=== PATIENT | female | born 1995 | race Caucasian/White ===

== ENCOUNTER 2017-02-05 17:00 | Inpatient (IN) | payer MEDICAID, OTHER ==
[~2017-02-05] VITALS: Ht 167.6 cm; Wt 64.9 kg
--- NOTE | 2017-02-05 17:41 | RADRPT ---
PROCEDURE: US OB. CLINICAL INDICATION: Size and dates ,leaking fluid TECHNIQUE: Multiple sonographic images of the pelvis and gravid uterus were obtained. The images were reviewed on a PACS workstation. COMPARISON: No prior studies are available for comparison. FINDINGS: There is a single viable intrauterine gestation. Cardiac activity is present with 122 beats per min elem. There is a vertex presentation. The placenta is anterior. There is no evidence for an abruption or placenta previa. Measurements were made in order to determine age. The results are as follows: BPD =9.3 cm HC =33.1 cm AC =33.8 cm FL =7.4 cm Estimated gestational age of approximately 37 weeks and 5 days based on ultrasound measurements. Clinical age: 37 weeks and 6 days. The estimated date of delivery is 02/21/17, based on ultrasound measurements. The EFW = 3284 g, 57%, based on LMP age. RPTAT: AA IMPRESSION: Single viable intrauterine gestation of approximately 37 weeks and 5 days based on ultrasound measu rements. .Anjel Gillespie MD, MD Date Time Electronically viewed and signed by .Anjel Gillespie MD, on 02/05/2017 17:41 .S/
--- NOTE | 2017-02-05 17:48 | RADRPT ---
PROCEDURE: OB ultrasound for biophysical profile CLINICAL INDICATION: Leaking fluid. TECHNIQUE: Multiple sonographic images of the pelvis were obtained. Transabdominal view of the gr avid uterus are available for review. The images were reviewed on a PACS workstation. COMPARISON: OB ultrasound from the same date. FINDINGS: breathing movement = 2/2 tone = 2/2 motion = 2/2 Quantitative amniotic fluid volume = 2/2 MEKHI = 12.2 cm Single live intrauterine with cardiac activity at 132 beats per minute. There is a anterior placenta without previa. IMPRESSION: 1. Single living intrauterine gestation in cephalic position. 2. Biophysical profile = 8/8. 3. MEKHI = 12.2 cm. RPTAT: [facility] Physician Joanne Date Time Electronically viewed and signed by Physician Joanne on 02/05/2017 17:48 /
--- NOTE | 2017-02-05 19:12 | TRIAGE ---
OB Triage Datetime Report Generated by CPN: 02/05/2017 19:11 Datetime: 02/05/2017 19:00 Stage of : OB Triage Maternal Assessment Level of Consciousness: Fully Conscious DTR's/Clonus: DTRs 1+ Headache: Denies Breath Sounds, Left: Clear and Equal Breath Sounds, Right: Clear and Equal Nausea/Vomiting: Denies RUQ Epigastric Pain: Denies Labor Evaluation Frequency: OCC Monitor Mode: External Duration (sec)2399: 60 Quality: Mild Pattern: Normal: <= 5 Contractions in 10 Minutes Resting Tone [place]: Relaxed Heart Rate FHR Baseline Rate: 120 Monitor Mode: External US Variability: Moderate 6-25 bpm Accelerations: 15X15 Decelerations: None Category: Category I Pain Assessment Pain Scale: 0 Pain Presence: None/Denies Pain Type: N/A Pain Goal: 3 Membrane Status: Intact Datetime: 02/05/2017 18:07 Comments: U/S REPOSITIONED Datetime: 02/05/2017 18:04 Maternal Assessment Level of Consciousness: Fully Conscious DTR's/Clonus: DTRs 1+ Headache: Denies Blurred Vision: No Respiratory Effort: Unlabored Breath Sounds, Left: Clear and Equal Breath Sounds, Right: Clear and Equal Nausea/Vomiting: Denies RUQ Epigastric Pain: Denies Facial Edema: None Labor Evaluation Frequency: X1 Monitor Mode: External Duration (sec)2399: 60 Quality: Mild Pattern: Normal: <= 5 Contractions in 10 Minutes Resting Tone [place]: Relaxed Heart Rate FHR Baseline Rate: 135 Monitor Mode: External US Variability: Moderate 6-25 bpm Accelerations: 15X15 Decelerations: None Category: Category I Pain Assessment Pain Scale: 0 Pain Presence: None/Denies Pain Type: N/A Pain Goal: 3 Membrane Status: Intact Datetime: 02/05/2017 17:22 Assessment Type: Triage EGA: 37.6 Maternal Assessment Level of Consciousness: Fully Conscious DTR's/Clonus: DTRs 2+; No Clonus Headache: Denies Blurred Vision: No Respiratory Effort: Unlabored; Regular Rhythm; Equal Expansion Breath Sounds, Left: Clear and Equal Breath Sounds, Right: Clear and Equal Nausea/Vomiting: Denies RUQ Epigastric Pain: Denies Lower Extremities Edema: None Degree: None Upper Extremities Edema: None Degree: None Facial Edema: None Fall Risk Assessment History of Falling: (0) No Secondary Diagnosis: (0) No Ambulatory Aid: (0) Bedrest/Nurse Assist IV Therapy: (0) No Gait: (0) Normal/Bedrest/Immobile Mental Status: (0) Oriented to Own Ability Fall Score: 0 Fall Risk Score Definition: No Risk: No action required Datetime: 02/05/2017 17:18 Comments: OFF U/S TECH IN ROOM STARTING U/S Datetime: 02/05/2017 17:14 Comments: AUDIBLE DECEL NOTED AT 70'S BPM, PT REPOSITONED AGAIN AND HERT BEAT SLOWLY GOING UP U/S TECH AT BEDSDIE Datetime: 02/05/2017 17:10 Vaginal Exam Dilatation (cms): 1.0 Effacement (%): 0 Station: -2 Exam By: HUSAM HAYES Vaginal Bleeding: None Cervix, Consistency: Soft Cervix, Position: Posterior Presentation 'A': Cephalic Datetime: 02/05/2017 17:00 Time of Arrival: 02/05/2017 17:00 Arrived By: Ambulatory Arrived From: Office Chief Complaint: PT CAME IN FROM [facility] OFFICE TO R/O SROM SINCE 2 WEEKS AGO Movement: Present Contractions: Denies/Absent Rupture of Membranes: Denies Vaginal Discharge: Denies Recent Sexual Intercouse: Denies Abdominal Trauma: Not Applicable Additional Patient Complaints: NONE Time Provider Notified: 02/05/2017 18:45 Provider Notified: MANUELA Initial Plan: NST AND BPP ROM +
[2017-02-05] MEDS ORDERED: LACTATED RINGER'S 1,000 ML IV PRN (19:51)
[2017-02-05] MEDS ORDERED: IBUPROFEN 600 MG TAB PO PRN (20:00)
[2017-02-05] MEDS ORDERED: LIDOCAINE 1% (MPF) 30 ML INJ INJ PRN (20:00)
[2017-02-05] MEDS ORDERED: OXYTOCIN 30 UNITS/LR 500 ML IV SCH ×2 (20:00)
[2017-02-05] MEDS ORDERED: BUTORPHANOL 2 MG INJ IV PRN (20:00)
[2017-02-05] MEDS ORDERED: METHYLERGONOVINE 0.2 MG INJ IM PRN (20:00)
[2017-02-05] MEDS ORDERED: OXYTOCIN 30 UNITS/LR 500 ML IV PRN (20:00)
[2017-02-05] MEDS ORDERED: CARBOPROST 250 MCG INJ IM PRN (20:00)
[2017-02-05] MEDS ORDERED: MISOPROSTOL 200 MCG TAB PR PRN (20:00)
[2017-02-05 20:27] VITALS: BP 108/63; PULSE 75; RESP 18
[2017-02-05 20:30] LABS: ADD SCAN DIFF NO; BASOPHILS % 0.3 % (0.0-2.0); EOSINOPHILS % 0.2 % (0.0-7.0); HEMATOCRIT 28.5 % (37.0-47.0); HEMOGLOBIN 8.9 g/dl (12.0-16.0); LYMPHOCYTES # 1.6 10^3/ul (0.8-2.9); LYMPHOCYTES % 18.1 % (15.0-51.0); MEAN CORPUSCULAR HGB CONC 31.2 g/dl (32.0-37.0); MEAN CORPUSCULAR VOLUME 83.3 fl (82.0-101.0); MEAN PLATELET VOLUME 9.7 fl (7.4-10.4); MONOCYTE # 0.5 10^3/ul (0.3-0.9); MONOCYTES % 5.9 % (0.0-11.0); NEUTROPHIL # 6.7 10^3/ul (1.6-7.5); NEUTROPHILS % 75.2 % (39.0-77.0); PLATELET COUNT 247 10^3/UL (140-415); RED BLOOD COUNT 3.42 10^6/ul (4.20-5.40); RED CELL DISTRIBUTION WIDTH 13.6 % (11.5-14.5); WHITE BLOOD COUNT 8.9 10^3/ul (4.8-10.8)
[2017-02-05 20:40] VITALS: Ht 167.6 cm; Wt 64.9 kg
[2017-02-05 20:45] LABS: INR 1.06; PROTIME 13.8 Sec (12.2-14.2); PT RATIO 1.1
[2017-02-05 20:46] LABS: PARTIAL THROMBOPLASTIN TIME 26.9 Sec (25.0-35.0)
[2017-02-05] MEDS: LACTATED RINGER'S 1,000 ML IV SCH (21:00)
[2017-02-06] MEDS: LACTATED RINGER'S 1,000 ML IV SCH (04:03)
--- NOTE | 2017-02-06 10:18 | HP ---
Date/Time of Note Date/Time of Note DATE: 02/06/17 TIME: 10:17 OB - History Hx of Present Free Text/Dictation @37+wks GA with variables at the time of admission : 1 Para: 0 Past Family/Social History * Past Medical, Surgical, Family and Obstetric Histories reviewed from chart. OB Admission Exam Vital Signs Vital Signs Vital Signs Date Time Temp Pulse Resp B/P Pulse Ox O2 Delivery O2 Flow Rate FiO2 02/05/17 20:27 98.0 75 18 108/63 Room Air Physical Exam Abdomen: WNL Extremities: Normal Cervical Dilatation: 1cm Effacement: 50% Membranes: Intact Heart Rate: 140's Accelerations: Accelerations Present Decelerations: No Decelerations Varibility: Moderate Contractions on Admission: >10 Minutes Apart Last 72 hours Lab Results CBC & BMP 02/05/17 20:05 OB Assessment/Plan Reason for admission: observation Plan: Expectant Management KAREN ROY M.D. February 06, 2017 10:18
--- NOTE | 2017-02-06 10:19 | QN ---
Documentation Comment Pateient seen at the bedside +FM No VB No LOF Occasional CTXs No cervical change NST reassuring [place] Occasional CTXs --->discharged with precautions --->Return to hospital in 2 days for NST KAREN ABURTO M.D. February 06, 2017 10:19
== END 2017-02-06 10:30 | disposition home or self-care (01) | DRG 780 ==
LOC: L-D 17:00 → OBT 17:00 → L-D 18:45
PROVIDERS: ADMIT Obstetrics & Gynecology; ATTEND Obstetrics & Gynecology
DX: O47.1 False labor at or after 37 completed weeks of gestation (principal); Z3A.37 37 weeks gestation of pregnancy
CPT/HCPCS: 76815; 76818; 84112; 85025; 85610; 85730; 86592; 86703; 86900; 86901; 87340; G0463; J7120

== ENCOUNTER 2017-02-08 13:25 | Outpatient (CLI) | payer MEDICAID ==
--- NOTE | 2017-02-08 14:34 | RADRPT ---
PROCEDURE: US OB biophysical profile. CLINICAL INDICATION: decreased movements TECHNIQUE: Multiple sonographic images of the pelvis were obtained. The images were reviewed on a PACS workstation. COMPARISON: 02/05/17 FINDINGS: There is a single viable intrauterine gestation. Cardiac activity is present with 139 beats per min luis. There is a vertex presentation. The placenta is anterior. There is no evidence of placental abruption. There is a normal amount of amniotic fluid with an MEKHI = 14.1 cm. Biophysical profile: movement 2/2 tone 2/2. breathing 2/2 MEKHI 2/2 Total 05/01 RPTAT: AA . IMPRESSION: Normal biophysical profile. . .Anjel Gillespie MD, MD Date Time Electronically viewed and signed by .Anjel Gillespie MD, MD on 02/08/2017 14:34 .S/
--- NOTE | 2017-02-08 14:39 | RADRPT ---
PROCEDURE: US OB. CLINICAL INDICATION: Size and dates , decreased movements TECHNIQUE: Multiple sonographic images of the pelvis and gravid uterus were obtained. The images were reviewed on a PACS workstation. COMPARISON: 02/05/2017 FINDINGS: There is a single viable intrauterine gestation. Cardiac activity is present with 142 beats per min [place]. There is a vertex presentation. The placenta is anterior. There is no evidence for an abruption or placenta previa. There is a normal amount of amniotic fluid with an MEKHI = 14.1 cm. Measurements were made in order to determine age. The results are as follows: BPD =9.1 cm HC =32.5 cm AC =35.1 cm FL =7.2 cm Estimated gestational age of approximately 37 weeks and 3 days based on ultrasound measurements. Clinical age: 38 weeks and 2 days. The estimated date of delivery is 02/26/17, based on ultrasound measurements. The EFW = 3363 g, 56.5%, based on LMP age. RPTAT: AA IMPRESSION: Single viable intrauterine gestation of approximately 37 weeks and 3 days based on ultrasound measu rements. .Anjel Gillespie MD, MD Date Time Electronically viewed and signed by .Anjel Gillespie MD, on 02/08/2017 14:39 .S/
--- NOTE | 2017-02-08 15:33 | TRIAGE ---
OB Triage Datetime Report Generated by CPN: 02/08/2017 15:32 Datetime: 02/08/2017 14:55 Labor Evaluation Frequency: NONE Monitor Mode: External Pattern: Normal: <= 5 Contractions in 10 Minutes Resting Tone [place]: Relaxed Heart Rate FHR Baseline Rate: 135 Monitor Mode: External US FHR Baseline Changes: No Baseline Change Variability: Moderate 6-25 bpm Accelerations: 15X15 Decelerations: None Category: Category I Datetime: 02/08/2017 13:51 Stage of : OB Triage Assessment Type: Triage Maternal Assessment Level of Consciousness: Fully Conscious DTR's/Clonus: DTRs 2+; No Clonus Headache: Denies Blurred Vision: No Respiratory Effort: Unlabored; Regular Rhythm; Equal Expansion Breath Sounds, Left: Clear and Equal Breath Sounds, Right: Clear and Equal Nausea/Vomiting: Denies RUQ Epigastric Pain: Denies Lower Extremities Edema: None Upper Extremities Edema: None Facial Edema: None Temperature Route: Oral Fall Risk Assessment History of Falling: (0) No Secondary Diagnosis: (0) No Ambulatory Aid: (0) Bedrest/Nurse Assist IV Therapy: (0) No Gait: (0) Normal/Bedrest/Immobile Mental Status: (0) Oriented to Own Ability Fall Score: 0 Fall Risk Score Definition: No Risk: No action required Pain Assessment Pain Scale: 0 Pain Presence: None/Denies Pain Type: N/A Pain Goal: 4 Datetime: 02/08/2017 13:30 Time of Arrival: 02/08/2017 13:30 EGA: 38.2 Arrived By: Ambulatory Arrived From: Home Chief Complaint: PT HERE FOR NST, BPP AND EFW Movement: Present Contractions: Occasional Rupture of Membranes: Denies Vaginal Bleeding: None Vaginal Discharge: Denies Recent Sexual Intercouse: Denies Abdominal Trauma: Not Applicable Patient Complaints: None Time Provider Notified: 02/08/2017 15:25 Datetime: 02/06/2017 10:00 Vaginal Exam Dilatation (cms): 0.0 Exam By: DR GHAYOORI Datetime: 02/06/2017 09:50 Labor Evaluation Frequency: 2-3/HR Monitor Mode: External Quality: Mild Pattern: Normal: <= 5 Contractions in 10 Minutes Resting Tone [place]: Relaxed Heart Rate FHR Baseline Rate: 130 Monitor Mode: External US FHR Baseline Changes: No Baseline Change Variability: Moderate 6-25 bpm Accelerations: 15X15 Decelerations: None Category: Category I Pain Presence: None/Denies Datetime: 02/06/2017 08:26 Labor Evaluation Frequency: OCC Monitor Mode: External Quality: Mild Pattern: Normal: <= 5 Contractions in 10 Minutes Resting Tone [place]: Relaxed Heart Rate FHR Baseline Rate: 130 Monitor Mode: External US FHR Baseline Changes: No Baseline Change Variability: Moderate 6-25 bpm Accelerations: 15X15 Decelerations: None Category: Category I Pain Presence: None/Denies Datetime: 02/06/2017 07:24 Assessment Type: Ongoing Assessment Maternal Assessment Level of Consciousness: Fully Conscious DTR's/Clonus: DTRs 2+; No Clonus Headache: Denies Blurred Vision: No Respiratory Effort: Unlabored; Regular Rhythm; Equal Expansion Breath Sounds, Left: Clear and Equal Breath Sounds, Right: Clear and Equal Nausea/Vomiting: Denies RUQ Epigastric Pain: Denies Facial Edema: None Fall Risk Assessment History of Falling: (0) No Secondary Diagnosis: (0) No Ambulatory Aid: (0) Bedrest/Nurse Assist IV Therapy: (0) No Gait: (0) Normal/Bedrest/Immobile Mental Status: (0) Oriented to Own Ability Fall Score: 0 Fall Risk Score Definition: No Risk: No action required Datetime: 02/06/2017 07:23 Labor Evaluation Frequency: 0 Monitor Mode: External Contraction Comments: DENIES FEELING ANY UC'S Heart Rate FHR Baseline Rate: 115 Monitor Mode: External US FHR Baseline Changes: No Baseline Change Variability: Moderate 6-25 bpm Accelerations: 15X15 Decelerations: None Category: Category I Pain Presence: None/Denies Datetime: 02/06/2017 07:00 Labor Evaluation Frequency: x5; irregular Monitor Mode: External Duration (sec)2399: 60-90 Quality: Mild Pattern: Normal: <= 5 Contractions in 10 Minutes Resting Tone [place]: Relaxed Heart Rate FHR Baseline Rate: 115 Monitor Mode: External US FHR Baseline Changes: No Baseline Change Variability: Moderate 6-25 bpm Accelerations: 15X15 Decelerations: None Category: Category I Datetime: 02/06/2017 06:00 Labor Evaluation Frequency: x5; irregular Monitor Mode: External Duration (sec)2399: 40-60 Quality: Mild Pattern: Normal: <= 5 Contractions in 10 Minutes Resting Tone [place]: Relaxed Heart Rate FHR Baseline Rate: 115 Monitor Mode: External US FHR Baseline Changes: No Baseline Change Variability: Moderate 6-25 bpm Accelerations: 15X15 Decelerations: None Category: Category I Datetime: 02/06/2017 05:00 Labor Evaluation Frequency: 3-5.5 Monitor Mode: External Duration (sec)2399: 40-80 Quality: Mild Pattern: Normal: <= 5 Contractions in 10 Minutes Resting Tone [place]: Relaxed Interventions: Sterile Vaginal Exam Heart Rate FHR Baseline Rate: 120 Monitor Mode: External US FHR Baseline Changes: No Baseline Change Variability: Moderate 6-25 bpm Accelerations: 15X15 Decelerations: None Category: Category I Datetime: 02/06/2017 04:55 Temperature Route: Oral Datetime: 02/06/2017 04:52 Vaginal Exam Dilatation (cms): 1.0 Effacement (%): 0 Station: -3 Exam By: MG Membrane Status: Intact Datetime: 02/06/2017 04:02 Pain Assessment Pain Scale: 0 Pain Presence: Intermittent Pain Type: Contraction Pain Location: Abdomen Pain Goal: 3 Pain Relief Measures: Comfort Measures Pain Assessment Comments: Pt states she feels occasional contractions. Datetime: 02/06/2017 04:00 Labor Evaluation Frequency: N/A Monitor Mode: External Resting Tone [place]: Relaxed Contraction Comments: Uterine activity noted. Heart Rate FHR Baseline Rate: 115 Monitor Mode: External US FHR Baseline Changes: No Baseline Change Variability: Moderate 6-25 bpm Accelerations: 15X15 Decelerations: None Category: Category I Datetime: 02/06/2017 03:00 Labor Evaluation Frequency: N/A Monitor Mode: External Resting Tone [place]: Relaxed Contraction Comments: Uterine activity noted. Heart Rate FHR Baseline Rate: 125 Monitor Mode: External US FHR Baseline Changes: No Baseline Change Variability: Moderate 6-25 bpm Accelerations: 15X15 Decelerations: None Category: Category I Datetime: 02/06/2017 02:00 Labor Evaluation Frequency: N/A Monitor Mode: External Resting Tone [place]: Relaxed Contraction Comments: Uterine activity noted. Heart Rate FHR Baseline Rate: 115 Monitor Mode: External US FHR Baseline Changes: No Baseline Change Variability: Moderate 6-25 bpm Accelerations: 15X15 Decelerations: None Category: Category I Datetime: 02/06/2017 01:28 Pain Assessment Pain Scale: 0 Pain Presence: None/Denies Pain Type: N/A Pain Goal: 3 Datetime: 02/06/2017 01:00 Labor Evaluation Frequency: x2 Monitor Mode: External Duration (sec)2399: 40-60 Quality: Mild Resting Tone [place]: Relaxed Heart Rate FHR Baseline Rate: 125 Monitor Mode: External US FHR Baseline Changes: No Baseline Change Variability: Moderate 6-25 bpm Accelerations: 15X15 Decelerations: None Category: Category I Datetime: 02/06/2017 00:37 Pain Assessment Pain Scale: 0 Pain Presence: None/Denies Pain Type: N/A Pain Goal: 3 Datetime: 02/06/2017 00:00 Labor Evaluation Frequency: 1-6 Monitor Mode: External Duration (sec)2399: 40-120 Quality: Mild Resting Tone [place]: Relaxed Heart Rate FHR Baseline Rate: 125 Monitor Mode: External US FHR Baseline Changes: No Baseline Change Variability: Moderate 6-25 bpm Accelerations: 15X15 Decelerations: None Category: Category I Datetime: 02/05/2017 23:04 Pain Assessment Pain Scale: 0 Pain Presence: None/Denies Pain Type: N/A Pain Goal: 3 Pain Assessment Comments: Pt reports feeling occasional contractions as "tightening" but states th at she does not feel pain. Datetime: 02/05/2017 23:00 Labor Evaluation Frequency: x3 Monitor Mode: External Duration (sec)2399: 40-100 Quality: Mild Resting Tone [place]: Relaxed Heart Rate FHR Baseline Rate: 125 Monitor Mode: External US FHR Baseline Changes: No Baseline Change Variability: Moderate 6-25 bpm Accelerations: 15X15 Decelerations: None Category: Category I Comments: Periods of loss of FHR contact. Datetime: 02/05/2017 22:44 Pain Assessment Pain Scale: 0 Pain Presence: Intermittent Pain Type: Contraction Pain Location: Abdomen Pain Goal: 3 Datetime: 02/05/2017 22:00 Labor Evaluation Frequency: Occasional Monitor Mode: External Duration (sec)2399: 40-60 Quality: Mild Resting Tone [place]: Relaxed Contraction Comments: Uterine activity noted, Heart Rate FHR Baseline Rate: 125 Monitor Mode: External US FHR Baseline Changes: No Baseline Change Variability: Moderate 6-25 bpm Accelerations: 15X15 Decelerations: None Category: Category I Comments: Period of baseline at 115 FHR Datetime: 02/05/2017 21:31 Pain Assessment Pain Scale: 0 Pain Presence: None/Denies Pain Type: N/A Pain Goal: 3 Datetime: 02/05/2017 21:00 Labor Evaluation Frequency: x1 Monitor Mode: External Duration (sec)2399: 40 Quality: Mild Resting Tone [place]: Relaxed Contraction Comments: Uterine activity noted. Heart Rate FHR Baseline Rate: 130 Monitor Mode: External US FHR Baseline Changes: Return to Previous Baseline Variability: Moderate 6-25 bpm Accelerations: 15X15 Decelerations: None Category: Category I Comments: Change of baseline from 115 to 130 FHR. Datetime: 02/05/2017 20:27 Temperature Route: Oral Pain Assessment Pain Scale: 0 Pain Presence: None/Denies Pain Type: N/A Pain Goal: 3 Datetime: 02/05/2017 20:00 Labor Evaluation Frequency: x1 Monitor Mode: External Duration (sec)2399: 40 Quality: Mild Resting Tone [place]: Relaxed Monitor Mode: External US FHR Baseline Changes: No Baseline Change Variability: Moderate 6-25 bpm Accelerations: 15X15 Decelerations: None Category: Category I Comments: Period of change of baseline from 135 to 120 FHR. Datetime: 02/05/2017 19:30 Assessment Type: Admission Assessment Maternal Assessment Level of Consciousness: Fully Conscious DTR's/Clonus: DTRs 2+; No Clonus Headache: Denies Blurred Vision: No Respiratory Effort: Unlabored; Regular Rhythm; Equal Expansion Breath Sounds, Left: Clear and Equal Breath Sounds, Right: Clear and Equal Nausea/Vomiting: Denies RUQ Epigastric Pain: Denies Lower Extremities Edema: None Degree: None Upper Extremities Edema: None Degree: None Facial Edema: None Fall Risk Assessment History of Falling: (0) No Secondary Diagnosis: (0) No Ambulatory Aid: (0) Bedrest/Nurse Assist IV Therapy: (0) No Gait: (0) Normal/Bedrest/Immobile Mental Status: (0) Oriented to Own Ability Fall Score: 0 Fall Risk Score Definition: No Risk: No action required Datetime: 02/05/2017 19:28 Stage of : Labor Pain Assessment Pain Scale: 0 Pain Presence: None/Denies Pain Type: N/A Pain Goal: 3 Datetime: 02/05/2017 19:25 Stage of : Labor Time of Arrival: 02/05/2017 19:25 EGA: 37.6 Arrived By: Ambulatory Arrived From: Other Unit in Hospital Datetime: 02/05/2017 17:22 EGA: 37.6 Fall Score: 0 Fall Risk Score Definition: No Risk: No action required
--- NOTE | 2017-02-08 15:44 | CONS ---
Date/Time of Note Date/Time of Note DATE: 02/08/17 TIME: 15:38 Consultation Date/Type/Reason Admit Date/Time February 08, 2017 OB triage consult Reason for Consultation This patient is a 21 years old primigravida with estimated date of confinement of January2016 which makes her 38 weeks and 2 days. This patient was admitted in the hospital last week due to low movement and had some workup done and was discharged in 24 hours . Today she is refereed here for further monitoring and evaluation of the fetus due to low movement. On examination; she is a well-developed nourished at term ,her vital signs are normal ,blood pressure 117/68 ,pulse rate 116 ,respiration 19 and temperature 95.3F Abdomen is soft at this time, she has scattered contractions, no real active labor. heart tone is reactive ;with good variability ,occasional acceleration , no decelerations We sent her for ultrasound study and the result is; a viable single intrauterine , with cardiac activity 142 bpm in vertex presentation, placenta was anterior no previa, amniotic fluid index was 14.1 cm. Her biophysical profile is 8/8 Estimated weight 3363 g which puts her into 56.5 percentile Constitutional: No chills, No diaphoresis, No disoriented, No febrile, No improved, No no complaints, No other, No poor po, No requiring IVF, No requiring O2 Eyes: No discharge, No no complaints, No other, No pain, No redness, No visual change ENT: No bleeding, No congestion, No discharge, No dysphagia, No no complaints, No other, No pain, No sore throat Respiratory: No cough, No no complaints, No other, No pain, No pleuritic pain, No shortness of breath, No sputum, No wheezing Cardiovascular: No chest pain, No edema, No lightheadedness, No no complaints, No orthopenea, No other, No palpitations, No paroxysmal nocturnal dyspnea Genitourinary: other (Due to the fact that she did not have much of a contraction and pelvic examination was not done), No bleeding, No discharge, No dysuria, No flank pain, No hematuria, No no complaints Musculoskeletal: other, No back pain, No bone/joint pain, No neck pain, No no complaints, No restricted range of motion, No swelling Skin: No bruising, No erythema, No laceration, No no complaints, No other, No pruritis, No rash, No skin lesions Neurologic: No confusion, No dizziness, No focal-weakness, No headache, No no complaints, No other, No seizure, No syncope Endocrine: No dry skin, No no complaints, No other, No polydypsia, No polyuria , No temp intolerance Additional Comments With these findings patient was reassured and was sent home to be seen in the clinic. she will return for further monitoring in 3 days if still . HANNAH JAVIER MD February 08, 2017 15:44
== END 2017-02-08 15:32 | disposition home or self-care (01) ==
LOC: L-D 13:25 → OBT 13:25
PROVIDERS: ATTEND Obstetrics & Gynecology
DX: O36.8130 Decreased fetal movements, third trimester, not applicable or unspecified (principal); Z3A.38 38 weeks gestation of pregnancy
CPT/HCPCS: 76815; 76818; Z7500; G0463

== ENCOUNTER 2017-02-10 14:00 | Inpatient (IN) | payer MEDICAID ==
[~2017-02-10] VITALS: Ht 167.6 cm; Wt 66.0 kg
[2017-02-10 14:19] VITALS: Ht 167.6 cm; Wt 66.0 kg
[2017-02-10 14:52] VITALS: BP 114/64; PULSE 93; RESP 20
[2017-02-10] MEDS ORDERED: OXYTOCIN 30 UNITS/LR 500 ML IV PRN (15:00)
[2017-02-10] MEDS ORDERED: IBUPROFEN 600 MG TAB PO PRN (15:00)
[2017-02-10] MEDS ORDERED: LIDOCAINE 1% (MPF) 30 ML INJ INJ PRN (15:00)
[2017-02-10] MEDS ORDERED: OXYTOCIN 30 UNITS/LR 500 ML IV SCH ×2 (15:00→18:30)
[2017-02-10] MEDS ORDERED: MISOPROSTOL 200 MCG TAB PR PRN (15:00)
[2017-02-10] MEDS ORDERED: BUTORPHANOL 2 MG INJ IV PRN (15:00)
[2017-02-10] MEDS ORDERED: METHYLERGONOVINE 0.2 MG INJ IM PRN (15:00)
[2017-02-10] MEDS ORDERED: CARBOPROST 250 MCG INJ IM PRN (15:00)
--- NOTE | 2017-02-10 15:00 | TRIAGE ---
OB Triage Datetime Report Generated by CPN: 02/10/2017 15:00 Datetime: 02/10/2017 14:16 Time of Arrival: 02/10/2017 14:16 EGA: 38.4 Arrived By: Ambulatory Arrived From: Home Chief Complaint: PT HERE FOR NST F/U Movement: Present Rupture of Membranes: Denies Vaginal Bleeding: None Vaginal Discharge: Denies Recent Sexual Intercouse: Denies Abdominal Trauma: Not Applicable Patient Complaints: None Provider Notified: DR ROY Initial Plan: EFM,NST, BPP Maternal Assessment Level of Consciousness: Fully Conscious DTR's/Clonus: DTRs 2+; No Clonus Headache: Denies Blurred Vision: No Respiratory Effort: Unlabored; Regular Rhythm; Equal Expansion Breath Sounds, Left: Clear and Equal Breath Sounds, Right: Clear and Equal Nausea/Vomiting: Denies RUQ Epigastric Pain: Denies Facial Edema: None Temperature Route: Axillary Fall Risk Assessment History of Falling: (0) No Secondary Diagnosis: (0) No Ambulatory Aid: (0) Bedrest/Nurse Assist IV Therapy: (0) No Gait: (0) Normal/Bedrest/Immobile Mental Status: (0) Oriented to Own Ability Fall Score: 0 Fall Risk Score Definition: No Risk: No action required Datetime: 02/10/2017 14:10 Maternal Assessment Level of Consciousness: Fully Conscious DTR's/Clonus: DTRs 2+ Headache: Denies Blurred Vision: No Nausea/Vomiting: Denies RUQ Epigastric Pain: Denies Facial Edema: None Labor Evaluation Frequency: NONE AT THIS TIME Pattern: Normal: <= 5 Contractions in 10 Minutes Heart Rate FHR Baseline Rate: 140 Monitor Mode: External US FHR Baseline Changes: No Baseline Change Variability: Moderate 6-25 bpm Accelerations: 15X15 Decelerations: None Category: Category I Pain Assessment Pain Scale: 0 Pain Presence: None/Denies Pain Goal: 4 Datetime: 02/08/2017 13:51 Fall Score: 0 Fall Risk Score Definition: No Risk: No action required Datetime: 02/08/2017 13:30 EGA: 38.2 Provider Notified: MD FOROOHAR Datetime: 02/06/2017 07:24 Fall Score: 0 Fall Risk Score Definition: No Risk: No action required Datetime: 02/05/2017 19:30 Fall Score: 0 Fall Risk Score Definition: No Risk: No action required Datetime: 02/05/2017 19:25 EGA: 37.6 Datetime: 02/05/2017 17:22 EGA: 37.6 Fall Score: 0 Fall Risk Score Definition: No Risk: No action required
[2017-02-10] MEDS: LACTATED RINGER'S 1,000 ML IV SCH ×3 (15:31→22:00)
[2017-02-10 15:43] LABS: ADD SCAN DIFF NO
[2017-02-10 15:44] LABS: BASOPHILS % 0.1 % (0.0-2.0); EOSINOPHILS % 0.4 % (0.0-7.0); HEMATOCRIT 28.5 % (37.0-47.0); LYMPHOCYTES # 2.1 10^3/ul (0.8-2.9); LYMPHOCYTES % 22.5 % (15.0-51.0); MEAN CORPUSCULAR HGB CONC 31.6 g/dl (32.0-37.0); MEAN CORPUSCULAR VOLUME 82.4 fl (82.0-101.0); MEAN PLATELET VOLUME 9.7 fl (7.4-10.4); MONOCYTE # 0.7 10^3/ul (0.3-0.9); NEUTROPHIL # 6.6 10^3/ul (1.6-7.5); NEUTROPHILS % 69.7 % (39.0-77.0); PLATELET COUNT 243 10^3/UL (140-415); RED BLOOD COUNT 3.46 10^6/ul (4.20-5.40); WHITE BLOOD COUNT 9.4 10^3/ul (4.8-10.8)
[2017-02-10 15:59] LABS: INR 0.96; PROTIME 12.8 Sec (12.2-14.2)
[2017-02-10 16:00] LABS: PARTIAL THROMBOPLASTIN TIME 25.8 Sec (25.0-35.0)
--- NOTE | 2017-02-10 16:19 | RADRPT ---
PROCEDURE: US biophysical profile. CLINICAL INDICATION: cardiac deceleration. TECHNIQUE: Multiple sonographic images of the uterus were obtained. The images were revi ewed on a PACS workstation. COMPARISON: 02/08/2017. FINDINGS: There is a single live intrauterine gestation. heart rate is 152 beats per minute. The position is cephalic. The placenta is anterior grade III with no abruption or previa. The MEKHI is 11.7 cm. (Normal = 5-20 cm.) Breathing Movement: 2 Gross Body Movement: 2 Tone: 2 Qualitative Amniotic Fluid Volume: 2 TOTAL: 8 IMPRESSION: 1. The biophysical score is 8/8. RPTAT: QQ .Romel Price MD, MD Date Time Electronically viewed and signed by .Romel Price MD, on 02/10/2017 16:19 .R/
--- NOTE | 2017-02-10 16:20 | RADRPT ---
PROCEDURE: US OB. CLINICAL INDICATION: cardiac deceleration TECHNIQUE: Multiple sonographic images of the uterus were obtained. The images were revi ewed on a PACS workstation. COMPARISON: 02/05/2017. FINDINGS: There is a single live intrauterine gestation. heart rate is 115 beats per minute. Measurements were made in order to determine age. The results are as follows: BPD = 8.94 cm. HC = 31.70 cm. AC = 35.60 cm. FL = 7.27 cm. Estimated weight is 3403 +/- 510 grams. LMP growth percentile is 55 %. Menstrual age by ultrasound dates is 37 weeks 1 day. The estimated date of delivery is 03/02/2017. Position is cephalic and placenta is anterior grade III. There is no evidence for an abruption or pl acenta previa. IMPRESSION: 1. Single live intrauterine gestation of 37 weeks 1 day menstrual age by ultrasound dates. 2. The estimated date of delivery is 03/02/2017. RPTAT: QQ .Romel Price MD, Date Time Electronically viewed and signed by .Romel Price MD, on 02/10/2017 16:20 .R/
[2017-02-10] MEDS: OXYTOCIN 30 UNITS/LR 500 ML IV SCH (18:23)
[2017-02-10] MEDS ORDERED: AMPICILLIN 2 GM/NS (PMX) 100 ML IVPB ONE (18:30)
[2017-02-10] MEDS ORDERED: AMPICILLIN 1 GM/NS (PMX) 50 ML IVPB SCH (21:00)
[2017-02-11] MEDS: LACTATED RINGER'S 1,000 ML IV PRN ×3 (04:18→12:36)
[2017-02-11] MEDS: LACTATED RINGER'S 1,000 ML IV SCH ×3 (05:12→16:14)
--- NOTE | 2017-02-11 09:22 | HP ---
Date/Time of Note Date/Time of Note DATE: 02/11/17 TIME: 09:16 OB - History Hx of Present Free Text/Dictation @38+4wks GA with Cathegory 2 tracing and 2 min prolonged decel.Hx of vaginal bleeding few days ago and admission Case D/w and delivery is recommended : 1 Para: 0 Care: Good Care Ultrasounds: Normal mid trimester US Obstetrical Complications: None Medical Complications: None Past Family/Social History * Past Medical, Surgical, Family and Obstetric Histories reviewed from chart. OB Admission Exam Vital Signs Vital Signs Vital Signs Date Time Temp Pulse Resp B/P Pulse Ox O2 Delivery O2 Flow Rate FiO2 02/10/17 14:52 98.2 93 20 114/64 Room Air Physical Exam Lungs: Clear Abdomen: WNL Extremities: Normal Cervical Dilatation: 1cm Effacement: 75% Station: -1 Membranes: Intact Heart Rate: 140's Decelerations: Variable Decelerations Varibility: Moderate Contractions on Admission: >10 Minutes Apart Last 72 hours Lab Results CBC & BMP 02/10/17 15:30 OB Assessment/Plan Reason for admission: observation Plan: Expectant Management KAREN ROY M.D. February 11, 2017 09:22
--- NOTE | 2017-02-11 09:24 | QN ---
Documentation Comment Patient seen at the bedside NST reassring Shiner q 7-8 min pelvic 2/80%/-1 AROM done Light Meconium IUPC and IFM placed KAREN ROY M.D. February 11, 2017 09:24
[2017-02-11] MEDS ORDERED: NALOXONE (0.4 MG/ML) INJ IV PRN (12:00)
[2017-02-11] MEDS ORDERED: FENTAnyl 2MCG/ML-ROPIV 0.2% 100 ML BAG EPI SCH (12:00)
[2017-02-11] MEDS ORDERED: ONDANSETRON 4 MG INJ IV PRN (12:00)
[2017-02-11] MEDS ORDERED: EPHEDrine SULFATE 50 MG/5 ML SYG IV PRN (12:00)
--- NOTE | 2017-02-11 23:30 | LDN ---
Date/Time of Note Date/Time of Note DATE: 02/11/17 TIME: 23:29 Delivery Summary Weeks of Gestation 38+ Placenta Delivered: Spontaneously Meconium: Light Episiotomy: No Perineal laceration: 2 Anesthesia type: Epidural Estimated blood loss: 200 Sponge & Needle done & correct: Yes Any foreign bodies felt in the: No Problems: Infant Delivery Information Sex Infant Sex: female Apgars 1 Minute: 9 5 Minute: 9 Suctioning Nose & mouth suctioned at desiree: Yes Umbilical Cord Umbilical cord with: 3 Vessels Cord presentations: nuchal cord Nuchal cord present X: 1 Cord Blood was obtained: Yes Mother & Baby Disposition Disposition Mom & Baby to Maternity; Good: Yes Baby to NICU: No KAREN ROY M.D. February 11, 2017 23:30
[2017-02-11] MEDS: OXYTOCIN 30 UNITS/LR 500 ML IV SCH (23:34)
[2017-02-12] MEDS ORDERED: LACTATED RINGER'S 1,000 ML IV* SCH (01:36)
[2017-02-12] MEDS ORDERED: OXYTOCIN 30 UNITS/LR 500 ML IV PRN (02:00)
[2017-02-12] MEDS ORDERED: DIPHENHYDRAMINE 25 MG CAP PO PRN (02:00)
[2017-02-12] MEDS ORDERED: LANOLIN 7 GM TUBE TOP PRN (02:00)
[2017-02-12] MEDS ORDERED: ZOLPIDEM 5 MG TAB PO PRN (02:00)
[2017-02-12] MEDS ORDERED: CARBOPROST 250 MCG INJ IM PRN (02:00)
[2017-02-12] MEDS ORDERED: WITCH HAZEL/GLYCERIN PAD PR PRN (02:00)
[2017-02-12] MEDS ORDERED: MISOPROSTOL 200 MCG TAB PR PRN (02:00)
[2017-02-12] MEDS ORDERED: BENZOCAINE 20% 56 ML SPRAY TOP PRN (02:00)
[2017-02-12] MEDS ORDERED: METHYLERGONOVINE 0.2 MG INJ IM PRN (02:00)
[2017-02-12] MEDS ORDERED: OXYCODONE/ASPIRIN (4.88/325) TAB PO PRN (02:00)
[2017-02-12] MEDS ORDERED: SENNA/DOCUSATE NA (8.6MG/50MG) TAB PO PRN (02:00)
[2017-02-12 02:10] VITALS: BP 127/79; PULSE 84; RESP 18
[2017-02-12 04:00] VITALS: BP 123/77; PULSE 79; RESP 18
[2017-02-12] MEDS: IBUPROFEN 600 MG TAB PO SCH ×3 (05:57→18:08)
[2017-02-12 07:21] LABS: ADD SCAN DIFF NO
[2017-02-12 07:24] LABS: BASOPHILS % 0.1 % (0.0-2.0); HEMATOCRIT 26.7 % (37.0-47.0); LYMPHOCYTES # 1.6 10^3/ul (0.8-2.9); MEAN CORPUSCULAR HEMOGLOBIN 24.7 pg (29.0-33.0); MEAN CORPUSCULAR VOLUME 82.4 fl (82.0-101.0); MEAN PLATELET VOLUME 10.2 fl (7.4-10.4); MONOCYTE # 0.9 10^3/ul (0.3-0.9); MONOCYTES % 6.1 % (0.0-11.0); NEUTROPHIL # 11.9 10^3/ul (1.6-7.5); NEUTROPHILS % 82.4 % (39.0-77.0); PLATELET COUNT 193 10^3/UL (140-415); RED BLOOD COUNT 3.24 10^6/ul (4.20-5.40); RED CELL DISTRIBUTION WIDTH 14.1 % (11.5-14.5); WHITE BLOOD COUNT 14.4 10^3/ul (4.8-10.8)
[2017-02-12 08:00] VITALS: BP 97/59; PULSE 86; RESP 17
[2017-02-12] MEDS: SENNA/DOCUSATE NA (8.6MG/50MG) TAB PO SCH ×2 (09:13→20:57)
[2017-02-12] MEDS: MAGNESIUM HYDROXIDE 30ML CUP PO SCH ×2 (09:13→20:56)
[2017-02-12 12:00] VITALS: BP 116/66; PULSE 70; RESP 16
[2017-02-12 15:43] VITALS: BP 112/70; PULSE 72; RESP 17
[2017-02-12 20:00] VITALS: BP 114/70; PULSE 79; RESP 18
--- NOTE | 2017-02-12 22:10 | QN ---
Documentation Comment PPD#1 is stable afebrile tolerates diet No VB +BM +voids VS stable Gen AND Abd soft NT ND Genitalia No blood at perinium --->discharge plan tomorrow --->ambulation KAREN ROY M.D. February 12, 2017 22:10
--- NOTE | 2017-02-12 22:11 | DS ---
Date/Time of Note Date/Time of Note DATE: 02/12/17 TIME: 22:10 Discharge Summary Admission/Discharge Info Admit Date/Time February 10, 2017 at 14:45 Discharge Date/Time January Final Diagnosis labor Patient Condition: Stable Procedures vaginal delivery Hospital Course uneventful Home Meds Reported Medications [None] No Conflict Check 08/08/10 Primary Care Provider Graham Mirza Pending Labs Laboratory Tests Test 02/12/17 06:35 White Blood Count 14.410^3/ul (4.8-10.8) Red Blood Count 3.2410^6/ul (4.20-5.40) Hemoglobin 8.0g/dl (12.0-16.0) Hematocrit 26.7% (37.0-47.0) Mean Corpuscular Volume 82.4fl (82.0-101.0) Mean Corpuscular Hemoglobin 24.7pg (29.0-33.0) Mean Corpuscular Hemoglobin Concent 30.0g/dl (32.0-37.0) Red Cell Distribution Width 14.1% (11.5-14.5) Platelet Count 94376^3/UL (140-415) Mean Platelet Volume 10.2fl (7.4-10.4) Neutrophils % 82.4% (39.0-77.0) Lymphocytes % 11.0% (15.0-51.0) Monocytes % 6.1% (0.0-11.0) Eosinophils % 0.0% (0.0-7.0) Basophils % 0.1% (0.0-2.0) Nucleated Red Blood Cells % 0.0/100WBC (0.0-0.0) Neutrophils # 11.910^3/ul (1.6-7.5) Lymphocytes # 1.610^3/ul (0.8-2.9) Monocytes # 0.910^3/ul (0.3-0.9) Eosinophils # 0.010^3/ul (0.0-0.5) Basophils # 0.010^3/ul (0.0-0.1) Nucleated Red Blood Cells # 0.010^3/ul (0.0-0.0) KAREN ROY M.D. February 12, 2017 22:11
[2017-02-13] MEDS: IBUPROFEN 600 MG TAB PO SCH ×4 (00:18→17:39)
[2017-02-13 03:50] VITALS: BP 103/70; PULSE 68; RESP 18
[2017-02-13 08:30] VITALS: BP 118/75; PULSE 70; RESP 17
[2017-02-13] MEDS ORDERED: DIPHTH/TET/ACEL PERTUSS (ADULT) 0.5 ML VIAL IM* ONE (09:00)
[2017-02-13] MEDS: SENNA/DOCUSATE NA (8.6MG/50MG) TAB PO SCH (09:00)
[2017-02-13] MEDS: MAGNESIUM HYDROXIDE 30ML CUP PO SCH (09:00)
[2017-02-13 16:00] VITALS: BP 117/75; PULSE 58; RESP 16
== END 2017-02-13 18:40 | disposition home or self-care (01) | DRG 775 ==
LOC: OBT 14:00 → L-D 14:00 → OBT 14:35 → L-D 14:45 → PP1 02-12 02:00
PROVIDERS: ADMIT Obstetrics & Gynecology; ATTEND Obstetrics & Gynecology
PROC: 10E0XZZ Delivery of Products of Conception, External Approach (ICD-10-PCS; principal; 2017-02-11)
DX: O69.81X0 Labor and delivery complicated by cord around neck, without compression, not applicable or unspecified (principal); Z37.0 Single live birth; Z3A.39 39 weeks gestation of pregnancy
CPT/HCPCS: 62319; 76815; 76818; 85025; 85610; 85730; 86592; 86850; 86900; 86901; 86920; 87340; 90715; G0463; J0290; J2590; J3010; J7120